=== PATIENT | male | born 1950 | race American Indian/Alaskan Native ===

== ENCOUNTER 2019-06-06 08:57 | Emergency (ER) | payer MEDICARE, OTHER ==
[2019-06-06 09:07] VITALS: BP 131/78
[2019-06-06] MEDS ORDERED: ONDANSETRON 4 MG ODT TAB PO ONE (10:18)
[2019-06-06] MEDS ORDERED: ACETAMINOPHEN W/CODEINE 300-30 MG TAB PO ONE (10:18)
--- NOTE | 2019-06-06 10:23 | Emergency Department Report ---
ED General Adult HPI - General Chief complaint: Extremity Problem,Nontraumatic Stated complaint: LFT FOOT SWELLING Time Seen by Provider: 06/06/19 09:42 Source: patient Mode of arrival: Ambulatory Limitations: No Limitations - History of Present Illness Initial comments: Patient presents to the emergency department with a chief complaint left bunion pain. Patient states that he was supposed to have his brain removed the backed out of the surgery. Patient denies any recent injury. -: unknown Location: lower extremity Severity scale (0 -10): 6 Quality: aching Consistency: constant Improves with: rest Worsens with: movement Associated Symptoms: denies other symptoms Treatments Prior to Arrival: none - Related Data Home Medications Medication Instructions Recorded Confirmed Last Taken Losartan [Cozaar] 25 mg PO QDAY 08/02/14 08/04/14 08/04/14 hydroCHLOROthiazide [Hctz] 25 mg PO QDAY 08/02/14 08/04/14 08/04/14 Previous Rx's Medication Instructions Recorded Last Taken Type HYDROcodone/ACETAMINOPHEN [[place] 1 each PO Q6HR PRN #25 tablet 08/02/14 08/03/14 Rx 7.5-325 mg TAB] Sulfamethoxazole/Trimethoprim 1 each PO BID #14 tablet 08/04/14 Unknown Rx [Bactrim Ds] Sulfamethoxazole/Trimethoprim 1 each PO BID #14 tablet 03/03/15 Unknown Rx [Bactrim DS TAB] cephALEXin [Keflex] 500 mg PO Q6HR #28 capsule 03/03/15 Unknown Rx Acetaminophen/Codeine [Tylenol 1 tab PO Q6H PRN #20 tab 04/05/15 Unknown Rx /Codeine # 3 tab] Ibuprofen [Motrin 600 MG tab] 600 mg PO Q8H PRN #50 tablet 04/05/15 Unknown Rx Prednisone [predniSONE 10 mg 10 mg PO .TAPER #1 tab.ds.pk 04/05/15 Unknown Rx (6-Day Pack, 21 Tabs)] Acetaminophen/Codeine [Tylenol 1 tab PO Q6H PRN #15 tab 06/06/19 Unknown Rx /Codeine # 3 tab] Naproxen [Naprosyn] 500 mg PO BID PRN #20 tablet 06/06/19 Unknown Rx predniSONE [Deltasone] 20 mg PO DAILY #15 tablet 06/06/19 Unknown Rx Allergies Allergy/AdvReac Type Severity Reaction Status Date / Time No Known Allergies Allergy Verified 04/05/15 04:54 ED Review of Systems ROS: Stated complaint: LFT FOOT SWELLING Other details as noted in HPI Comment: All other systems reviewed and negative Constitutional: denies: chills, fever Eyes: denies: eye pain, eye discharge, vision change ENT: denies: ear pain, throat pain Respiratory: denies: cough, shortness of breath, wheezing Cardiovascular: denies: chest pain, palpitations Endocrine: no symptoms reported Gastrointestinal: denies: abdominal pain, nausea, diarrhea Genitourinary: denies: urgency, dysuria Musculoskeletal: denies: back pain, joint swelling, arthralgia Skin: denies: rash, lesions Neurological: denies: headache, weakness, paresthesias Psychiatric: denies: anxiety, depression Hematological/Lymphatic: denies: easy bleeding, easy bruising ED Past Medical Hx - Past Medical History Previous Medical History?: Yes Hx Hypertension: Yes Hx Renal Disease: Yes (CKD) Hx Arthritis: Yes Hx Psychiatric Treatment: Yes (PTSD) - Surgical History Past Surgical History?: Yes Additional Surgical History: cataract Bilateral - Social History Smoking Status: Never Smoker Substance Use Type: None - Medications Home Medications: Home Medications Medication Instructions Recorded Confirmed Last Taken Type HYDROcodone/ACETAMINOPHEN [[place] 1 each PO Q6HR PRN #25 tablet 08/02/14 08/04/14 08/03/14 Rx 7.5-325 mg TAB] Losartan [Cozaar] 25 mg PO QDAY 08/02/14 08/04/14 08/04/14 History hydroCHLOROthiazide [Hctz] 25 mg PO QDAY 08/02/14 08/04/14 08/04/14 History Sulfamethoxazole/Trimethoprim 1 each PO BID #14 tablet 08/04/14 Unknown Rx [Bactrim Ds] Sulfamethoxazole/Trimethoprim 1 each PO BID #14 tablet 03/03/15 Unknown Rx [Bactrim DS TAB] cephALEXin [Keflex] 500 mg PO Q6HR #28 capsule 03/03/15 Unknown Rx Acetaminophen/Codeine [Tylenol 1 tab PO Q6H PRN #20 tab 04/05/15 Unknown Rx /Codeine # 3 tab] Ibuprofen [Motrin 600 MG tab] 600 mg PO Q8H PRN #50 tablet 04/05/15 Unknown Rx Prednisone [predniSONE 10 mg 10 mg PO .TAPER #1 tab.ds.pk 04/05/15 Unknown Rx (6-Day Pack, 21 Tabs)] Acetaminophen/Codeine [Tylenol 1 tab PO Q6H PRN #15 tab 06/06/19 Unknown Rx /Codeine # 3 tab] Naproxen [Naprosyn] 500 mg PO BID PRN #20 tablet 06/06/19 Unknown Rx predniSONE [Deltasone] 20 mg PO DAILY #15 tablet 06/06/19 Unknown Rx ED Physical Exam - General Limitations: No Limitations General appearance: alert, in no apparent distress - Head Head exam: Present: atraumatic, normocephalic - Eye Eye exam: Present: normal appearance - ENT ENT exam: Present: mucous membranes moist - Neck Neck exam: Present: normal inspection - Rectal Rectal exam: Present: deferred - Extremities Exam Extremities exam: Present: other (inflamed bunion of the left great toe) - Back Exam Back exam: Present: normal inspection - Neurological Exam Neurological exam: Present: alert, oriented X3 - Psychiatric Psychiatric exam: Present: normal affect, normal mood - Skin Skin exam: Present: warm, dry, intact, normal color. Absent: rash ED Course Vital Signs 06/06/19 09:06 Temperature 98.0 F Pulse Rate 75 Respiratory 16 Rate Blood Pressure 131/78 O2 Sat by Pulse 98 Oximetry Critical care attestation.: If time is entered above; I have spent that time in minutes in the direct care of this critically ill patient, excluding procedure time. ED Disposition Clinical Impression: Bunion of great toe of left foot Disposition: DC- TO HOME OR SELFCARE Is pt being admited?: No Does the pt Need Aspirin: No Condition: Stable Instructions: Bunion (ED) Additional Instructions: return if worse Referrals: [facility] [Provider Group] - 3-5 Days [facility] [Provider Group] - 3-5 Days Time of Disposition: 10:22
== END 2019-06-06 10:36 | disposition home or self-care (01) ==
LOC: ED 08:57
DX: N28.9 Disorder of kidney and ureter, unspecified (principal); I10 Essential (primary) hypertension; M19.90 Unspecified osteoarthritis, unspecified site; Z98.890 Other specified postprocedural states; Z79.899 Other long term (current) drug therapy; Z98.41 Cataract extraction status, right eye; Z98.42 Cataract extraction status, left eye
CPT/HCPCS: 99282; Q0162